=== PATIENT | female | born 1955 | race Caucasian/White ===

== ENCOUNTER → 2019-09-24 | Outpatient (CLI) | payer BC ==
[2019-09-24 09:59] LABS: BASOPHILS # (AUTO) 0.1 10^3/uL (0.0-0.1); BASOPHILS % (AUTO) 1 % (0-10); EOSINOPHILS # (AUTO) 0.3 10^3/uL (0.0-0.3); EOSINOPHILS % (AUTO) 4 % (0-10); HEMATOCRIT 43 % (35-52); HEMOGLOBIN 13.9 G/DL (11.5-16.0); LYMPHOCYTES # (AUTO) 2.2 X 10^3 (1.0-4.0); LYMPHOCYTES % (AUTO) 33 % (12-44); MEAN CORPUSCULAR HEMOGLOBIN 29 PG (25-34); MEAN CORPUSCULAR HGB CONC 33 G/DL (32-36); MEAN CORPUSCULAR VOLUME 90 FL (80-99); MEAN PLATELET VOLUME 10.7 FL (7.4-10.4); MONOCYTES # (AUTO) 0.8 X 10^3 (0.0-1.0); MONOCYTES % (AUTO) 11 % (0-12); NEUTROPHILS # (AUTO) 3.5 X 10^3 (1.8-7.8); NEUTROPHILS % (AUTO) 51 % (42-75); PLATELET COUNT 236 10^3/uL (130-400); RED CELL DISTRIBUTION WIDTH 13.9 % (10.0-14.5); WHITE BLOOD COUNT 6.8 10^3/uL (4.3-11.0)
[2019-09-24 10:20] LABS: ALANINE AMINOTRANSFERASE 32 U/L (0-55); ALKALINE PHOSPHATASE 116 U/L (40-136); BILIRUBIN,TOTAL 0.5 MG/DL (0.1-1.0); BUN/CREATININE RATIO 19; CARBON DIOXIDE 27 MMOL/L (21-32); CHLORIDE 104 MMOL/L (98-107); GFR ESTIMATED > 60; GLUCOSE 93 MG/DL (70-105); POTASSIUM 4.1 MMOL/L (3.6-5.0); SODIUM 138 MMOL/L (135-145); TOTAL PROTEIN 7.3 GM/DL (6.4-8.2)
--- NOTE | 2019-09-24 10:30 | Diagnostic Imaging Report ---
PROCEDURE: CT abdomen and pelvis without contrast. TECHNIQUE: Multiple contiguous axial images were obtained through the abdomen and pelvis without the use of intravenous contrast. Auto Exposure Controls were utilized during the CT exam to meet ALARA standards for radiation dose reduction. INDICATION: Left lower quadrant pain and low back pain for 3 days. COMPARISON: No prior studies are available for comparison. FINDINGS: The lung bases are clear. The liver and gallbladder are unremarkable. No biliary ductal dilatation is seen. The pancreas and spleen are unremarkable. No adrenal mass is identified. The kidneys are unremarkable. No calculi are detected. There is no hydronephrosis. The aorta is nonaneurysmal. The visualized small and large bowel loops are of normal caliber. No obstruction is identified. There are no findings to suggest diverticulitis or appendicitis. No free fluid or fluid collection is seen. The uterus is surgically absent. The bladder is unremarkable. Minimal nonspecific density is identified in the subcutaneous tissues of the anterior abdominal wall in a left paramidline location. No fluid collection is seen. Post surgical changes of posterior instrumented fusion is identified from the L4 through S1 levels transfixed by vertical stabilization rods and bipedicular screws. Severe degenerative disc disease at the L1-2, L2-3, and L3-4 levels is noted with significant disc space narrowing and marginal osteophyte formation. No acute bony abnormality is seen. IMPRESSION: 1. No acute feature in the abdomen or pelvis is identified. 2. Postop changes of posterior instrumented fusion. There is severe upper lumbar degenerative disc disease. No acute bony abnormality is seen. Dictated by: Dictated on workstation # [id number]
== END ==
LOC: RAD 09:24
PROVIDERS: ATTEND Nurse Practitioner Family
DX: M51.36 Other intervertebral disc degeneration, lumbar region (principal); R10.32 Left lower quadrant pain; Z98.1 Arthrodesis status
CPT/HCPCS: 36415; 74176; 80053; 85025

== ENCOUNTER → 2020-06-22 | Outpatient (CLI) | payer BC | LOC: RAD 09:09 | PROVIDERS: ATTEND Nurse Practitioner | DX: Z12.31 Encounter for screening mammogram for malignant neoplasm of breast (principal) | CPT/HCPCS: 77063; 77067 ==

== ENCOUNTER 2020-11-23 09:49 | Outpatient (RCR) | payer MEDICARE, OTHER ==
[~2020-11-23] VITALS: Ht 160 cm; Wt 97.7 kg
[2020-11-24] MEDS ORDERED: VITA1TAB17 PO (12:57)
[2020-11-24] MEDS ORDERED: ALBUTEROL INHAL (12:57)
[2020-11-24] MEDS ORDERED: POLY17PO6 PO (12:57)
[2020-11-24] MEDS ORDERED: L.AC1CAP6 PO (12:57)
[2020-11-24] MEDS ORDERED: OMEP40CA27 PO (12:57)
[2020-11-24] MEDS ORDERED: BUDE10.2 IH (12:57)
[2020-11-24] MEDS ORDERED: VNL75T PO (12:57)
[2020-11-24] MEDS ORDERED: ZOLP10TA PO (12:57)
[2020-11-24] MEDS ORDERED: iron PO (12:57)
[2020-11-24] MEDS ORDERED: vitamin e PO (12:57)
[2020-11-24] MEDS ORDERED: MULT-1136 PO (12:57)
[2020-11-24] MEDS ORDERED: DOCU-143 PO (12:57)
[2020-11-24] MEDS ORDERED: PRAM1TAB2 PO (12:57)
[2020-11-24] MEDS ORDERED: MAGN400T8 PO (12:57)
[2020-11-24] MEDS ORDERED: FLUT9.9S NS (12:57)
[2020-11-24] MEDS ORDERED: LISI1TAB26 PO (12:57)
[2020-11-24] MEDS ORDERED: DICL75TA2 PO (12:57)
[2020-11-24] MEDS ORDERED: PRAM1TAB5 PO (12:57)
[2020-11-24] MEDS ORDERED: BUDESONIDE (12:57)
[2020-11-24] MEDS ORDERED: MV-M1TAB20 PO (12:57)
[2020-11-24] MEDS ORDERED: CYCL10TA9 PO (12:57)
[2020-11-24] MEDS ORDERED: ARIP2TAB3 PO (12:57)
== END 2020-11-24 12:59 | disposition home or self-care (01) ==
LOC: PREOP 09:49
PROVIDERS: ATTEND Specialist
DX: Z01.818 Encounter for other preprocedural examination (principal)

== ENCOUNTER 2020-11-26 08:16 | Day surgery (SDC) | payer MEDICARE, OTHER ==
[~2020-11-26] VITALS: Ht 160 cm; Wt 97.7 kg
[~2020-11-26 08:16] MED LIST: ALBUTEROL INHAL; ARIP2TAB3 PO; BUDE10.2 IH; BUDESONIDE; CYCL10TA9 PO; DICL75TA2 PO; DOCU-143 PO; FLUT9.9S NS; L.AC1CAP6 PO; LISI1TAB26 PO; MAGN400T8 PO; MULT-1136 PO; MV-M1TAB20 PO; OMEP40CA27 PO; POLY17PO6 PO; PRAM1TAB2 PO; PRAM1TAB5 PO; VITA1TAB17 PO; VNL75T PO; ZOLP10TA PO; iron PO; vitamin e PO
[2020-11-26 08:43] VITALS: BP 138/75
[2020-11-26] MEDS: TETRACAINE 0.5% OPHTH SOLN 4 ML BTL (SINGLE DOSE ONLY) OU PRN ×3 (08:45→08:51)
--- NOTE | 2020-11-26 08:57 | Ophthalmologist Pre-Op Note ---
Pre-Operative Progress Note H&P Reviewed The H&P was reviewed, patient examined and no changes noted. Date H&P Reviewed: Nov 26, 2020 Time H&P Reviewed: 08:57 Pre-Op Dx Secondary Cataract, Right Eye LENORE FLORES MD Nov 26, 2020 08:57
--- NOTE | 2020-11-26 09:07 | Ophthalmology Operative Report ---
YAG Capsulotomy PREOPERATIVE DIAGNOSIS: Secondary Cataract Right Eye POSTOPERATIVE DIAGNOSIS: Secondary Cataract Right Eye PROCEDURE: YAG Capsulotomy, right eye SURGEON: Bipin Flores ANESTHESIA: Topical anesthesia COMPLICATIONS: None ESTIMATED BLOOD LOSS: Minimal DESCRIPTION OF PROCEDURE: After proper informed consent was obtained, the patient's, a 65 female, right eye received one drop of Tropicamide and one drop of Tetracaine. The patient was then placed at the YAG laser and using a power of [3.2 ] millijoules and [ 16] bursts were used to fashion a central capsulotomy. The patient tolerated the procedure well without complications. BIPIN FLORES MD Nov 26, 2020 09:07
[2020-11-26] MEDS ORDERED: PHENYLEPHRINE 10% OPHTH (NEO-SYN) 5 ML BTL OU PRN (10:00)
[2020-11-26] MEDS ORDERED: TROPICAMIDE 1% OPH SOLN (MYDRIACYL) 15 ML BTL OU PRN (10:00)
== END 2020-11-26 09:15 ==
LOC: SDC 08:16
PROVIDERS: ATTEND Specialist
DX: H26.491 Other secondary cataract, right eye (principal); G47.09 Other insomnia; J45.909 Unspecified asthma, uncomplicated; M19.90 Unspecified osteoarthritis, unspecified site; G47.00 Insomnia, unspecified; Z79.899 Other long term (current) drug therapy

== ENCOUNTER 2021-09-06 06:09 | Outpatient (CLI) | payer MEDICARE, OTHER ==
[~2021-09-06] VITALS: Ht 160 cm; Wt 97.7 kg
[~2021-09-06 06:09] MED LIST changes: -MAGN400T8 PO; +MGX400T PO; -OMEP40CA27 PO; +OMEP40CA6 PO
[2021-09-06] MEDS ORDERED: GBPN600T PO (10:36)
== END 2021-09-06 10:38 | disposition home or self-care (01) ==
LOC: PREOP 06:09
PROVIDERS: ATTEND Specialist
DX: Z01.818 Encounter for other preprocedural examination (principal)

== ENCOUNTER 2021-09-09 06:45 | Day surgery (SDC) | payer MEDICARE, OTHER ==
[~2021-09-09] VITALS: Ht 160 cm; Wt 97.7 kg
[~2021-09-09 06:45] MED LIST changes: +GBPN600T PO
[2021-09-09 07:13] VITALS: BP 136/64
[2021-09-09] MEDS: TETRACAINE 0.5% OPHTH SOLN 4 ML BTL (SINGLE DOSE ONLY) OU PRN ×2 (07:14→07:19)
[2021-09-09] MEDS ORDERED: PHENYLEPHRINE 10% OPHTH (NEO-SYN) 5 ML BTL OU PRN (07:15)
[2021-09-09] MEDS ORDERED: TROPICAMIDE 1% OPH SOLN (MYDRIACYL) 15 ML BTL OU PRN (07:15)
[2021-09-09 08:00] VITALS: BP 136/64
--- NOTE | 2021-09-09 08:15 | Ophthalmologist Pre-Op Note ---
Pre-Operative Progress Note H&P Reviewed The H&P was reviewed, patient examined and no changes noted. Date H&P Reviewed: Sep 09, 2021 Time H&P Reviewed: 07:44 Pre-Op Dx Secondary Cataract, Right Eye LENORE FLORES MD Sep 09, 2021 08:15
--- NOTE | 2021-09-09 08:15 | Ophthalmology Operative Report ---
YAG Capsulotomy PREOPERATIVE DIAGNOSIS: Secondary Cataract Left Eye POSTOPERATIVE DIAGNOSIS: Secondary Cataract Left Eye PROCEDURE: YAG Capsulotomy, left eye SURGEON: Bipin Flores ANESTHESIA: Topical anesthesia COMPLICATIONS: None ESTIMATED BLOOD LOSS: Minimal DESCRIPTION OF PROCEDURE: After proper informed consent was obtained, the patient's, a 66 female left eye received one drop of Tropicamide and one drop of Tetracaine. The patient was then placed at the YAG laser and using a power of [ 3.5] millijoules and [18 ] bursts were used to fashion a central capsulotomy. The patient tolerated the procedure well without complications. BIPIN FLORES MD Sep 09, 2021 08:15
== END 2021-09-09 08:50 | disposition home or self-care (01) ==
LOC: SDC 06:45
PROVIDERS: ATTEND Specialist
DX: H26.492 Other secondary cataract, left eye (principal); J45.909 Unspecified asthma, uncomplicated; M19.90 Unspecified osteoarthritis, unspecified site

== ENCOUNTER → 2021-10-04 | Outpatient (CLI) | payer MEDICARE, OTHER ==
[~2021-10-04] MED LIST changes: +CYCL10TA25 PO; -CYCL10TA9 PO; -LISI1TAB26 PO; +LISI1TAB48 PO
--- NOTE | 2021-10-04 12:08 | Diagnostic Imaging Report ---
Indication: Routine screening. Comparison is made with prior mammogram from 06/22/2020 and 06/23/2015. 2-D and 3-D bilateral screening mammography was performed with CAD. Scattered fibroglandular densities are identified bilaterally. A benign nodular in the upper outer right breast is stable. No spiculated mass or malignant-appearing microcalcifications are seen. Axillae are unremarkable. IMPRESSION: BI-RADS Category 2 No mammographic features suspicious for malignancy are identified. ACR BI-RADS Category 2: Benign findings. Result letter will be mailed to the patient. Note: At least 10% of breast cancer is not imaged by mammography. Dictated by: Dictated on workstation # [id number]
== END ==
LOC: RAD 09:20
PROVIDERS: ATTEND Nurse Practitioner
DX: Z12.31 Encounter for screening mammogram for malignant neoplasm of breast (principal)
CPT/HCPCS: 77063; 77067

== ENCOUNTER → 2022-10-10 | Outpatient (CLI) | payer MEDICARE, OTHER ==
--- NOTE | 2022-10-10 11:13 | Diagnostic Imaging Report ---
INDICATION: Postmenopausal screening COMPARISON: Baseline FINDINGS: AP Spine L1-L4: [BMD (g/cm2): na] [T-Score: na] [Z-Score: na] [BMD Previous: na] [BMD % Change: na] LT Hip Neck: [BMD (g/cm2): 0.755] [T-Score: -2.0] [Z-Score: -1.3] LT Hip Total: [BMD (g/cm2):0.728] [T-Score:-2.2] [Z-Score: -1.8] [BMD Previous: na] [BMD % Change: na] RT Hip Neck: [BMD (g/cm2):0.866] [T-Score:-1.2] [Z-Score:-0.5] RT Hip Total: [BMD (g/cm2):0.881] [T-score:-1.0] [Z-Score:-0.6] [BMD Previous:na] [BMD % Change:na] *Indicates significant change from prior examination based on 95% confidence level. World Health Organization criteria for BMD interpretation classify patients as Normal (T-score at or above -1.0), Osteopenic (T-score between -1.0 and -2.5) or Osteoporotic (T-score at or below -2.5). LIMITATIONS AND MODIFICATION: None. FRACTURE RISK (FRAX SCORE): The ten year probability of (%): Major Osteoporotic Fracture: [22.8] Hip Fracture: [2.6] IMPRESSION: 1. Osteopenia (Low bone mass). 2. Baseline examination. 3. See below National Osteoporosis Foundation guidelines on when to potentially initiate pharmacologic therapy. Based on the National Osteoporosis Foundation Guidelines, pharmacologic treatment should be initiated in any of the following, unless clinical conditions suggest otherwise: * Any patient with prior fragility fracture of the hip or vertebrae. A spine fracture indicates 5X risk for subsequent spine fracture and 2X risk for subsequent hip fracture. * Osteoporosis (T-score <-2.5). * Postmenopausal women and men age 50 and older with low bone mass/osteopenia (T-score between -1.0 and -2.5) by DXA and 10-year major osteoporotic fracture greater than 20% or a 10-year probability of hip fracture greater than 3%. These fracture risks are supplied above in the FRAX score, if applicable. * Clinician judgement and/or patient preferences may indicate treatment for people with 10-year fracture probabilities above or below these levels. Dictated by: Dictated on workstation # [id number]
== END ==
LOC: RAD 10:06
PROVIDERS: ATTEND Pediatrics
DX: Z13.820 Encounter for screening for osteoporosis (principal); M81.0 Age-related osteoporosis without current pathological fracture; M85.80 Other specified disorders of bone density and structure, unspecified site; Z78.0 Asymptomatic menopausal state
CPT/HCPCS: 77080